=== PATIENT | female | born 1980 | race Caucasian/White ===

== ENCOUNTER 2017-07-31 19:47 | Emergency (ER) | payer OTHER | END 2017-07-31 20:50 | disposition home or self-care (01) | LOC: FTE 19:47 | DX: R05 Cough (principal) | CPT/HCPCS: 99283; Z7502 ==

== ENCOUNTER 2017-09-06 10:10 | Emergency (ER) | payer OTHER ==
[2017-09-06 10:56] LABS: URINE BLOOD (Dip) POC Trace-lysed (NEGATIVE); URINE GLUCOSE (Dip) POC Negative (NEGATIVE); URINE KETONES (Dip) POC Negative (NEGATIVE); URINE LEUKOCYTE EST (Dip) POC 1+ (NEGATIVE); URINE NITRITE (Dip) POC Negative (NEGATIVE); URINE TOTAL PROTEIN POC Negative (NEGATIVE)
[2017-09-06 10:56] LABS: URINE PH (Dip) POC 6.5 (5.0-8.5)
[2017-09-06] MEDS: KETOROLAC 30 MG INJ IM (11:05)
== END 2017-09-06 12:00 | disposition home or self-care (01) ==
LOC: FTE 10:10
DX: M54.5 Low back pain (principal); G89.29 Other chronic pain
CPT/HCPCS: 81003; 81025; 96372; 99284-25